=== PATIENT | female | born 1955 | race Caucasian/White ===

== ENCOUNTER → 2018-09-15 | Outpatient (CLI) | payer BC ==
--- NOTE | 2018-09-16 14:19 | MM ---
Reason for exam: screening (asymptomatic). Last mammogram was performed 2 years ago. History: Patient is postmenopausal. Physical Findings: A clinical breast exam by your physician is recommended on an annual basis and results should be correlated with mammographic findings. MG Screening Mammo w CAD Bilateral CC and MLO view(s) were taken. Prior study comparison: September 09, 2016, bilateral MG screening mammo w CAD. July 12, 2014, bilateral MG screening mammo w CAD. The breast tissue is heterogeneously dense. This may lower the sensitivity of mammography. No suspicious abnormality. No significant changes when compared with prior studies. ASSESSMENT: Negative, BI-RAD 1 RECOMMENDATION: Routine screening mammogram of both breasts in 1 year.
== END | disposition home or self-care (01) ==
LOC: RADMAMWWP 11:09
PROVIDERS: ATTEND Family Medicine
DX: Z12.31 Encounter for screening mammogram for malignant neoplasm of breast (principal)
CPT/HCPCS: 77067

== ENCOUNTER 2024-12-31 10:30 | Day surgery (SDC) | payer MEDICARE ==
--- NOTE | 2024-12-30 18:16 | HP ---
HISTORY AND PHYSICAL CHIEF COMPLAINT: Chronic laryngitis with right laryngocele. HISTORY OF PRESENT ILLNESS: This patient is a 69-year-old female, who has previously undergone a laser resection of a large left laryngocele under general anesthesia approximately 8 weeks ago. At the time of her surgery, it was noted that she had a smaller laryngocele on the right side. It was decided that she would be brought back at a later date to address this issue. She was recently seen in my office and it was determined at that time that the right laryngocele was still present and was recommended that the patient undergo a suspension microlaryngoscopy with CO2 laser excision of a right laryngocele under general anesthesia. CURRENT MEDICATIONS: 1. Amlodipine. 2. Glipizide. 3. Lisinopril. 4. Metformin. 5. Simvastatin. 6. Ezetimibe. 7. Latanoprost. 8. Lyrica. 9. Ipratropium nasal spray. PREVIOUS SURGERIES: Include suspension microlaryngoscopy x2, excision of benign lesion of the upper lip, and an appendectomy. She is 3, para 3, miscarriage 0. REVIEW OF SYSTEMS: CARDIOVASCULAR: Positive for hypertension. METABOLIC/ENDOCRINE: Positive for type 2 diabetes mellitus and hypercholesterolemia. Special senses are positive for glaucoma. The remainder of the review of systems is unremarkable. PHYSICAL EXAMINATION: GENERAL: The patient is a pleasant 69-year-old female, who is alert and cooperative. HEENT: The patient is normocephalic. Tympanic membranes are normal. Middle ear space is free of any fluid or infection. Pupils equal, round, and reactive to light and accommodation. Extraocular movements within normal limits. Intranasal examination reveals moderate septal deviation with compensatory hypertrophy of the inferior turbinates, and a mild amount of clear mucus on the mucous membranes and draining down the posterior pharynx. Examination of oropharynx using the headlight mirror reveals no suspicious lesions on the right or left piriform sinuses, base of tongue, vallecula, or epiglottis. The previously excised laryngocele site has healed quite nicely. However, there remains a small to moderate-sized laryngocele on the right side involving the right false vocal cord. The remainder of the head and neck exam is unremarkable. CHEST/CARDIOVASCULAR: Both lung tim are clear to percussion and auscultation. The patient is in regular sinus rhythm. S1, S2 are present. No murmurs, S3s, or S4s. Peripheral pulses are bilaterally symmetrical. ABDOMEN: There are no evidence of any masses, megaly, or tenderness. Abdomen is soft. SKIN: Unremarkable. MUSCULOSKELETAL/NEUROLOGIC: Within normal limits. PELVIC/RECTAL: This should be printed. Pelvic/rectal is deferred at this time because the patient has done on a regular basis at her family physician's office. The remainder of physical exam is unremarkable. IMPRESSION: Right laryngocele. PLAN: The patient is scheduled to undergo a suspension microlaryngoscopy with CO2 laser excision of a right laryngocele under general anesthesia. Attention RNs in the pre-surgical area, I have ordered for this patient to receive 1000 mg of Ofirmev to be given once an intravenous line has been established. In addition to this, I have also ordered for this patient to receive 2 g of Ancef IV to be given once an intravenous line has been established. If the Pharmacy Department sends a different pre-surgical prophylactic antibiotic to the pre-surgical area, please cancel that and return the medication to the Pharmacy Department. Also make sure that the patient's account is credited appropriately. I have discussed the risks, benefits and alternative therapies for the above-mentioned procedure and for both sedation/analgesia as well as necessary blood product administration, if indicated, as they pertain to this patient. The patient has indicated her understanding and acceptance of the risks and procedures discussed. MMODL / IJN: [id number] /
[~2024-12-31 10:30] MED LIST: HYDROmorphone 0.5 MG/0.5 ML SYRINGE IVP PRN; MIDAZOLAM 2 MG/2 ML VIAL IV PRN; Pre Op ABX Message 1 EACH MISC MISCELLANE ONE
[2024-12-31] MEDS: LACTATED RINGERS 1,000 ML IV SCH (11:25)
[2024-12-31] MEDS: ACETAMINOPHEN IV (For NPO) 1,000 MG in EMPTY BAG 1 BAG IVPB ONE (11:26)
[2024-12-31] MEDS: DEXAMETHASONE SOD PHOSPHATE 4 MG/ML 1 ML VIAL IV ONE (11:27)
[2024-12-31] MEDS: ONDANSETRON 4 MG/2 ML VIAL IVP ONE (11:28)
[2024-12-31] MEDS: IV FLUID CONTINUATION 1,000 ML IV ONE (11:31)
[2024-12-31] MEDS ORDERED: NEOSTIGMINE 1 MG/ML 10 ML VIAL ONE (12:02)
[2024-12-31] MEDS ORDERED: fentaNYL (PF) 50 MCG/ML 2 ML AMP ONE (12:02)
[2024-12-31] MEDS ORDERED: ROCURONIUM 10 MG/ML (5 ML VIAL) IV ONE (12:02)
[2024-12-31] MEDS ORDERED: DEXAMETHASONE SOD PHOSPHATE 10 MG/ML 1 ML VIAL ONE (12:02)
[2024-12-31] MEDS ORDERED: PROPOFOL 10 MG/ML 20 ML VIAL IV ONE (12:02)
[2024-12-31] MEDS ORDERED: SUCCINYLCHOLINE CHLORIDE 200 MG/10 ML VIAL IV ONE (12:02)
[2024-12-31] MEDS ORDERED: LIDOCAINE 1% INJ 10MG/ML (20 ML MDV) ONE (12:02)
[2024-12-31] MEDS ORDERED: GLYCOPYRROLATE 0.2 MG/ML 2 ML VIAL ONE (12:02)
[2024-12-31] MEDS ORDERED: MIDAZOLAM 2 MG/2 ML VIAL ONE (12:02)
[2024-12-31] MEDS: LACTATED RINGERS 1,000 ML IV ONE (13:16)
[2024-12-31 13:35] VITALS: TEMP 97.2
[2024-12-31 13:46] VITALS: RESP 16
[2024-12-31] MEDS: DEXAMETHASONE SOD PHOSPHATE 10 MG/ML 1 ML VIAL IVP ONE (14:20)
[2024-12-31 15:31] VITALS: BP 132/78; PULSE 78
--- NOTE | 2025-01-04 09:55 | OP ---
OPERATIVE REPORT DATE OF SERVICE : PREOPERATIVE DIAGNOSIS: Right laryngocele. POSTOPERATIVE DIAGNOSIS: Right laryngocele. ANESTHESIA: General. PROCEDURE PERFORMED: CO2 laser vaporization of right laryngocele. COMPLICATIONS: None. DESCRIPTION OF PROCEDURE: The patient was placed on the operating table in supine position. After uneventful induction and endotracheal intubation, satisfactory general anesthesia was obtained. Next, the patient's head was draped in usual and customary fashion. Following this, using the laryngoscope, which was introduced into the oropharynx and the entire hypopharynx including the right and left piriform sinuses, base of tongue, valleculae, and epiglottis was inspected and found to be free of any suspicious lesions. Next, the tip of the laryngoscope was placed at the laryngeal introitus, and immediately one could see that there was a moderate size laryngocele located just superior to the right true vocal cord. Next, the handle of the Lewy apparatus was attached to the laryngoscope, and the laryngoscope was suspended on the patient's chest. Next, using the Zeiss operating microscope and under magnified visualization, and using a hand CO2 laser, approximately 75% of this lesion was vaporized in the usual fashion. Having vaporized most of the laryngocele, the right true vocal cord became more visible at this point. The patient was given 10 mg of Decadron intraoperatively to reduce any postoperative laryngeal edema. At this point, the procedure was terminated. There were no intraoperative complications. The patient tolerated the procedure well and was returned to the recovery room in satisfactory condition. MMODL / IJN: [id number] /
== END 2024-12-31 15:53 | disposition home or self-care (01) ==
LOC: OR 10:30
PROVIDERS: ATTEND Otolaryngology
DX: J37.0 Chronic laryngitis (principal); J38.1 Polyp of vocal cord and larynx; K21.9 Gastro-esophageal reflux disease without esophagitis; I10 Essential (primary) hypertension; E78.5 Hyperlipidemia, unspecified; E11.9 Type 2 diabetes mellitus without complications; Q31.3 Laryngocele; Z86.73 Personal history of transient ischemic attack (TIA), and cerebral infarction without residual deficits; Z90.49 Acquired absence of other specified parts of digestive tract; Z88.2 Allergy status to sulfonamides; Z79.02 Long term (current) use of antithrombotics/antiplatelets; Z79.84 Long term (current) use of oral hypoglycemic drugs; Z79.899 Other long term (current) drug therapy
CPT/HCPCS: 31505; J2250; J0330; J1100 ×2; J2710; J2405; J2003; J3010; J0131; J2704; J1596